=== PATIENT | male | born 1990 | race Caucasian/White ===

== ENCOUNTER 2017-07-29 22:28 | Emergency (ER) | payer BC ==
[~2017-07-29] VITALS: Ht 180.3 cm; Wt 93.9 kg
[2017-07-29 22:44] VITALS: BP 116/64; PULSE 98; RESP 18; TEMP 98.4; O2SAT 97
--- NOTE | 2017-07-30 00:49 | PD ---
HPI Chief Complaint: Foreign Body Time Seen by Provider: 00:49 Travel History International Travel<30 days: No Contact w/Intl Traveler<30days: No Traveled to known affect area: No History of Present Illness HPI 27-year-old male came to the emergency room with history of a foreign body in his right eye. Patient says he was racing and some sand gravel came into his eye. During the evening yesterday. Patient does not wear contact lens. No blurred vision. Otherwise a healthy person. [facility] Past Medical History Narrative Medical List of his past medical, surgical, social and family history is reviewed from the nursing note. Tetanus Vaccination: < 5 Years Influenza Vaccination: No Social History Alcohol Use: No Tobacco Use: No Substance Use: No Allergies-Medications (Allergen,Severity, Reaction): Coded Allergies: No Known Allergies (Unverified , 07/29/17) Comments No known drug allergies. Reported Meds & Prescriptions Reported Meds & Active Scripts Active Erythromycin Opth Oint 5 Mg/Gm Oint 1 Applic RIGHT EYE BID Narrative Medication List of his home medications reviewed from the nursing note. Review of Systems Except as stated in HPI: all other systems reviewed are Neg Eyes: Positive: Foreign Body Sensation Physical Exam Narrative GENERAL: Awake, alert, no obvious distress SKIN: Focused skin assessment warm/dry. HEAD: Atraumatic. Normocephalic. EYES: Pupils equal and round. No scleral icterus. Bilateral conjunctival injection. Right eye cornea appears to be clean. I do not see any foreign body. Fluorescein test was done. Refer to my procedure note. ENT: No nasal bleeding or discharge. Mucous membranes pink and moist. NECK: Trachea midline. No JVD. CARDIOVASCULAR: Regular rate and rhythm. No murmur appreciated. RESPIRATORY: No accessory muscle use. Clear to auscultation. Breath sounds equal bilaterally. GASTROINTESTINAL: Abdomen soft, non-tender, nondistended. Hepatic and splenic margins not palpable. MUSCULOSKELETAL: No obvious deformities. No clubbing. No cyanosis. No edema. NEUROLOGICAL: Awake and alert. No obvious cranial nerve deficits. Motor grossly within normal limits. Normal speech. PSYCHIATRIC: Appropriate mood and affect; insight and judgment normal. Data Data Last Documented VS Vital Signs Date Time Temp Pulse Resp B/P (MAP) Pulse Ox O2 Delivery O2 Flow Rate FiO2 07/29/17 22:44 98.4 98 18 116/64 (81) 97 Orders Orders Proparacaine 0.5% Opth Soln (Alcaine 0.5 (07/30/17 01:00) Erythromycin 0.5% Opth Oint (Ilotycin 0. (07/30/17 01:00) Ed Discharge Order (07/30/17 00:57) [facility] Medical Decision Making Medical Screen Exam Complete: Yes Emergency Medical Condition: Yes Medical Record Reviewed: Yes Differential Diagnosis Corneal abrasion Narrative Course 1:01 AM patient went to the bathroom and looked at the mirror himself. He agreed that he could not see the foreign body that he originally could not get out and came to the emergency room for. However proceeded with the fluorecin test. Please refer to my procedure note. Patient will be discharged home after the erythromycin ointment application. He has been given discharge instructions. Procedures Procedure Narrative Fluorescein test: 2 drops of 0.5% proparacaine was instilled into the right eye to achieve local anesthesia. Fluorecin strip was introduced and patient was asked to blink couple times. With lamp was used and a punctate abrasion at 6 o' clock position midway between the pupil and the corneal rim was noticed. Patient agreed that that was where he had noticed a foreign body being stuck. Patient tolerated the procedure well. EKG Prior to Arrival: No Diagnosis Primary Impression: Corneal abrasion Qualified Codes: S05.01XA - Injury of conjunctiva and corneal abrasion without foreign body, right eye, initial encounter Referrals: Rosemary Hill MD 1 day Additional Instructions: Please use the and hepatic ointment as per the prescription direction. Called the [facility] in the morning. Her information has been provided on this discharge instruction. Return to ER if condition worsens or any other new concerns. Med/Other Pt SpecificInfo: Prescription(s) given Scripts Erythromycin Opth Oint (Erythromycin Opth Oint) 5 Mg/Gm Oint 1 APPLIC RIGHT EYE BID for Infection, #1 TUBE 0 Refills Prov: Armin Villarreal MD 07/30/17 Disposition: 01 DISCHARGE HOME Condition: Stable Armin Villarreal MD Jul 30, 2017 00:49
[2017-07-30] MEDS ORDERED: ERYTOIN10 RIGHT EYE (00:59)
[2017-07-30] MEDS ORDERED: ERYTHROMYCIN 0.5% OPTH OINT 3.5 GM TUBO RIGHT EYE ONE (01:00)
[2017-07-30] MEDS ORDERED: PROPARACAINE HCL 0.5% OPHT SOLN 15 ML BTL EACH EYE ONE (01:00)
== END 2017-07-30 01:09 | disposition home or self-care (01) ==
LOC: PHED 22:28
DX: S05.01XA Injury of conjunctiva and corneal abrasion without foreign body, right eye, initial encounter (principal); X58.XXXA Exposure to other specified factors, initial encounter; Y93.89 Activity, other specified
CPT/HCPCS: 99283